=== PATIENT | male | born 1990 ===

== ENCOUNTER 2024-12-20 19:23 | Emergency (ER) | payer SELFPAY ==
--- NOTE | ~2024-12-20 | CT_ITS ---
EXAMINATION: CT chest abdomen pelvis w con DATE: 12/20/2024 21:05 INDICATION: ams, febrile . TECHNIQUE: Computed tomography (CT) of the chest, abdomen, and pelvis was performed with intravenous contrast. Automated exposure control and iterative reconstruction technique were employed. The dose-l ength product was 2196.26 mGy-cm. COMPARISON: None FINDINGS: CHEST: No thoracic aortic injury. No mediastinal hematoma. Calcified lymph nodes. No pericardial effusion. No acute lung injury. No pleural effusion or pneumothorax. ABDOMEN/PELVIS: No solid organ injury. Hepatic steatosis. No evidence of bowel or mesenteric injury. No free fluid or free air. No retroperitoneal hematoma. Pelvic contents are atraumatic. The rectum is distended to 6.0 cm by formed stool, without surroundin g wall thickening or inflammatory change. MUSCULOSKELETAL: Slightly impacted fracture of the right humeral head. Mild symmetric gynecomastia. Small uncomplicate d fat-containing umbilical and left inguinal hernias. Mild superior endplate deformities at T8-T11. Moderate burst fracture at T12 with 4 mm retropulsion. IMPRESSION: Slightly impacted right humeral head fracture. Presumed acute mild compression fractures at T8 through T11. Moderate burst fracture at T12 with 4 mm retropulsion. Hepatic steatosis. Possible fecal impaction. Reviewed, dictated and finalized at location K. OMER MARKETING INTERN IMPRESSION: Slightly impacted right humeral head fracture. Presumed acute mild compression fractures at T8 through T11. Moderate burst fra cture at T12 with 4 mm retropulsion. Hepatic steatosis. Possible fecal impaction.
--- NOTE | ~2024-12-20 | XR_ITS ---
EXAMINATION: XR chest 1V portable Exam Date/Time: 12/20/2024 20:10 HAIR DRYER HISTORY: ams, febrile Comparison: None. RESULT: Lines, tubes, and devices: None. Lungs and pleura: Low volumes with crowding. Mild diffuse reticular opacities. No focal consolidatio n, pleural effusion, or pneumothorax. Cardiomediastinal silhouette: Unremarkable. Other: No acute osseous or upper abdominal finding. IMPRESSION: Mild diffuse interstitial opacities may represent artifact from crowding or mild edema/respiratory br onchiolitis. Reviewed, dictated and finalized at location K. DRYER IMPRESSION: Mild diffuse interstitial opacities may represent artifact from crowding or mil d edema/respiratory bronchiolitis.
--- NOTE | ~2024-12-20 | CT_ITS ---
EXAMINATION: CT brain wo con DATE: 12/20/2024 20:46 INDICATION: ams, febrile, poss hx TBI . TECHNIQUE: Computed tomography (CT) of the head was performed without intravenous contrast. The mA wa s adjusted according to patient size. Iterative reconstruction technique was employed. The dose-lengt h product was 756.67 mGy-cm. COMPARISON: None. FINDINGS: 6.4 x 4.0 x 3.9 cm right temporal intracranial hemorrhage with surrounding edema. 5 mm [id number] midline shift. No acute extra-axial fluid collection. No hydrocephalus or mass. No acute ischemic infarct. Unremarkable dural venous sinus attenuation. No acute osseous abnormality. Small retention cyst/polyp in a right anterior ethmoid cell, the remaining aerated spaces are clear. IMPRESSION: 6.4 cm right temporal intracranial hemorrhage with 5 mm subfalcine herniation. Results reported telephonically to Dr. Contreras by Dr. Kelley at 8:53 PM on 12/20/2024. Reviewed, dictated and finalized at location K. OPHANE CASTING MACHINE REPAIRER IMPRESSION: 6.4 cm right temporal intracranial hemorrhage with 5 mm subfalcine herniation. Results reported telephonically to Dr. Contreras by Dr. Kelley at 8:53 PM on 2024.
--- NOTE | ~2024-12-20 | XR_ITS ---
EXAM: XR knee RT 3V DATE: 12/20/2024 21:33 HISTORY: abrasion, possible pain? . COMPARISON: None available. FINDINGS: Normal mineralization. No fracture or dislocation. No lytic or blastic lesion. Joint space s are maintained. No erosion or periosteal change. Soft tissues within normal limits. IMPRESSION: No acute osseous finding in the right knee. Reviewed, dictated and finalized at location K. ER
--- NOTE | ~2024-12-20 | CT_ITS ---
EXAMINATION: CT cervical spine wo con DATE: 12/20/2024 21:02 INDICATION: ams, TECHNIQUE: Computed tomography (CT) of the cervical spine was performed without intravenous contrast. Automated exposure control and iterative reconstruction technique were employed. The dose-length pro duct was 767.40 mGy-cm. COMPARISON: None. FINDINGS: Vertebral Body Alignment: Intact. Craniocervical and atlantoaxial alignment: Mild degenerative change at the HEBER. Alignment intact. Osseous structures/fracture: No evidence of a lytic or blastic process in the visualized spine. No e vidence of acute fracture. Mild sphenoid mucosal thickening. Cervical soft tissues: The paraspinal soft tissues planes are maintained. Degenerative changes: No significant degenerative changes. IMPRESSION: No acute fracture or traumatic malalignment in the cervical spine. Reviewed, dictated and finalized at location K. LER LEAD TEACHER
[2024-12-20 19:24] VITALS: BP 152/110; PULSE 78; RESP 18; TEMP 38.7; O2SAT 95
--- NOTE | 2024-12-20 19:30 | ECG_ITS ---
Test Date: 2024-12-20 19:58:26 Measurements Intervals [place] Rate: 85 P: 56 WV: 151 QRS: 7 QRSD: 96 T: 31 QT: 391 QTc: 466 Interpretive Statements SINUS RHYTHM No previous ECG available for comparison Electronically Signed On 12-21-2024 14:19:04 HAMPER MAKER MACHINE by Adelaide Oliva M.D.
--- NOTE | 2024-12-20 19:33 | ED.AMS ---
HPI - Altered Mental Status General Chief Complaint: Altered Mental Status Stated Complaint: Altered from homeless encampment Source: EMS and other (Rubi from [facility]) Mode of arrival: EMS Limitations: altered mental status and other History of Present Illness HPI narrative: Patient presents via EMS from a homeless encampment. Personal from a local [facility] is able to provide collateral information is they are familiar with this patient. He has been homeless for approximately 2 years. Not believed to use drugs. Possible history TBI although unsure. Reports a history of R external strabismus which is baseline. Sleeping on porch. EMS note that he was alert oriented x2 or 3 which is also reported as his baseline however he reports that he is possibly autistic and generally communicative although tonight he was speaking nonsensically. Up he did seem to indicate that he was in pain when being moved to the stretcher however can not say where/how. Patient repeatedly asking for a glass of water, had asked the same to staff. Related Data Allergies Allergy/AdvReac Type Severity Reaction Status Date / Time No Known Allergies Allergy Verified 12/20/24 20:27 [facility] Past Medical History Medical History Strabismus Social History Social History (Updated 12/20/24 @ 19:42 by Vernell Contreras MD) Social History: Previously from [place]; parents from [place] Living arrangements: homeless Additional living arrangements comments: since approximately 2022 Exam Narrative: GENERAL: Well-appearing, well-nourished, and in no acute distress. HEAD: Normocephalic, atraumatic. EYES: Non injected, non icteric. PERRL, approximately 4mm bilaterally. ENT: Nares clear, no rhinorrhea or epistaxis. NECK: C collar in place CHEST: Speaking in sentences. No respiratory distress. Lungs clear auscultation bilaterally. HEART: Regular rate and rhythm. ABDOMEN: Soft, nondistended. Nontender to palpation throughout. No rigidity or guarding. Not peritoneal. : Normal male external genitalia EXTREMITIES: No lower extremity edema. Small very superficial abrasion on right knee. Extremities palpated x4 w/o obvious bony deformity. SKIN: Core/torso warm but extremities are cool, symmetrically. No ecchymosis. NEURO: No focal deficits. Alert but unable to answer questions including not his name or the year or circumstances. Repeatedly asking for a cup of water. No ankle clonus bilaterally. PSYCH: COurteous. Mood and affect congruent. Course Vital Signs Vital signs: Vital Signs Temperature 101.6 F H 12/20/24 19:24 Pulse Rate 78 12/20/24 19:24 Respiratory Rate 18 12/20/24 19:24 Blood Pressure 152/110 H 12/20/24 19:24 Pulse Oximetry 95 12/20/24 19:24 Oxygen Delivery Room Air 12/20/24 19:24 Temperature 101.6 F H 12/20/24 19:24 Pulse Rate 73 12/20/24 22:18 Respiratory Rate 18 12/20/24 22:18 Blood Pressure 147/89 H 12/20/24 22:18 Pulse Oximetry 100 12/20/24 22:18 Oxygen Delivery Room Air 12/20/24 19:37 MDM - Altered Mental Status MDM Narrative Medical decision making narrative: Patient presents from a homeless penitentiary/encampment, known by [facility] personnel. Reportedly alert and oriented x2-3 at baseline but typically able to speak whereas initially speaking nonsensically to EMS and unable to provide history. Possible history of autism and TBI, though not confirmed. Rectal temperature 101.6? F and patient mildly hypertensive but otherwise VS within normal limits. Social determinants of health affecting/contributing: Homelessness. Patient has a leukocytosis. Given the concern for infection/sepsis, a second liter of NS fluids ordered. Hyperglycemia without anion gap or acidosis. Hyperbilirubinemia, indirect. Ddx indirect hyperbilirubinemia Over production of bilirubin (hemolytic anemia), reduced uptake (cirrhosis or congestive hepatopathy), impaired conjugation, biliary obstruction, hereditary disease (Gilbert syndrome, Tim-George syndrome, Crigler-Nelli syndrome), medication side effect (allopurinol, anabolic steroids, antibiotics, antimalarials, etc.) Patient had been noted to yell out as if in pain when rolled by EMS although does not do so initially in stretcher but then does when staff attempts to roll for insertion of rectal Tylenol for fever. States it's bad but can not localize. Will start with this Tylenol and reassess; CT scan chest/abd/pelvis already ordered but will add Knee Xray. Urinalysis without signs of infection although there is glucosuria and proteinuria. Patient has a right temporal intracranial hemorrhage. GCS 11 (E3/V4/M4). C collar removed due to no fracture. Patient continues to be protecting his airway. He is informed about his diagnosis although unable to meaningingfully engage in conversation; support person with patient is informed. Hemoglobin A1c is 9.0%, thus patient is a diabetic although this does not appear to have been previously known. While awaiting discussion with emergency department attending at [facility], patient's CT imaging for chest abdomen pelvis does results showing a right humeral head fracture. Also T8-T11 compression fractures. This is presumably now a trauma. Patient discussed with ED attending Dr. Allie Kumar who accepts patient is a level 2 trauma emergency department to emergency department transfer at 9:35 p.m. will arrange EMS transportation and notify if any change in condition. Control BP <180mmHg. Will give pain medication. Sling ordered for humerus fracture. Critical Care: 1 or more vital organ systems impaired with a high probability of imminent or life-threatening deterioration in the patient's condition requiring frequent personal assessment and manipulation of the patient's condition. This included time spent evaluating the patient, speaking with EMS pre-hospital personnel and family, reviewing/interpreting laboratory/imaging studies, discussing the case with consultants or admitting teams, retrieving data and reviewing charts, monitoring for decompensation, documenting the visit, and performing bundled procedures exclusive of separately billed procedures. Differential Diagnosis Differential diagnosis: Likely alcoholic intoxication, altered mental status, delirium, hypoglycemia, hyponatremia, subarachnoid hemorrhage, sepsis and other (viral syndrome, infection due to pneumonia/UTI/other. Encephalopathy/meningitis. Seizure. Hypothermia. ) Lab Data Attestation: I reviewed the patient's lab results. 12/20/24 19:50 12/20/24 19:50 Labs: Lab Results 12/20/24 12/20/24 12/20/24 Range/Units 19:50 20:00 22:32 WBC 13.4 H (4.5-10.0) K/mm3 RBC 5.42 (4.6-6.20) M/mm3 Hgb 16.3 (14.0-18.0) g/dL Hct 48.6 (42.0-52.0) % MCV 89.7 (80-100) fl MCH 30.1 (26-34) pg MCHC 33.5 (32-36) g/dl RDW 12.9 (11.5-14.5) % Plt Count 164 (150-375) k/mm3 MPV 10.1 (7.4-10.4) fl Immature Gran % (Auto) 0.7 H (0-0.5) % Neut % (Auto) 86.2 H (45.5-73.1) % Lymph % (Auto) 6.9 L (18.3-44.2) % [place] % (Auto) 6.1 (2.6-8.5) % Eos % (Auto) 0.0 (0-4.4) % Baso % (Auto) 0.1 L (0.2-1.2) % Lymph # (Auto) 0.93 (0.9-3.2) K/mm3 [place] # (Auto) 0.8 H (0.1-0.6) K/mm3 Eos # (Auto) 0.0 (0-0.3) K/mm3 Baso # (Auto) 0.0 (0.0-0.1) K/mm3 Abs Immat Gran (auto) 0.10 H (0.00-0.031) K/mm3 Absolute Neuts (auto) 11.6 H (1.3-6.7) K/mm3 Absolute Nucleated RBC 0.000 (0.0-0.012) K/mm3 Nucleated RBC % 0.0 (0.0-0.2) % PT 15.7 H (11.1-14.7) Seconds INR 1.2 APTT 27.2 (22.3-36.8) Seconds Sodium 137 (137-145) mmol/L Potassium 4.0 (3.4-5.0) mmol/L Chloride 100 (98-107) mmol/L Carbon Dioxide 25 (22-30) mmol/L Anion Gap 12 (4-12) mmol/L BUN 21 H (9-20) mg/dL Creatinine 0.84 (0.7-1.3) mg/dL Estim Creat Clear Calc Not Reportable Estimated GFR > 60 (59 - ) Glucose 203 H (65-110) mg/dL POC Capillary Glucose 207 H (65-105) mg/dl Hemoglobin A1c 9.0 H (<5.7) % Lactic Acid 1.8 (0.7-2.0) mmol/L Calcium 9.3 (8.4-10.2) mg/dL Total Bilirubin 3.0 H (0.2-1.3) mg/dL Direct Bilirubin 0.0 (0-0.3) mg/dL Indirect Bilirubin 2.2 H (0-1.1) mg/dL AST 37 (17-59) U/L ALT 57 H (6-50) U/L Alkaline Phosphatase 96 (38-126) U/L Ammonia < 9 L (9-30) umol/L Total Creatine Kinase 177 H (55-170) U/L Troponin I < 0.012 (0.000-0.034) ng/mL Total Protein 9.0 H (6.3-8.2) g/dL Albumin 4.2 (3.5-5.1) g/dL TSH 1.210 (0.465-4.680) uIU/mL Urine Color Dark yellow (Yellow) Urine Appearance Clear (Clear) Urine pH 5.5 (5.0-9.0) Ur Specific [place] 1.030 (1.001-1.035) Urine Protein 3+ H (Negative) mg/dL Urine Glucose (UA) Trace H (Negative) mg/dL Urine Ketones 2+ H (Negative) mg/dL Ur Blood (Man) 2+ H (Negative) Urine Nitrate Negative (Negative) Urine Bilirubin 1+ H (Negative) Urine Urobilinogen 4.0 H (<2.0) mg/dL Add Ur Microanalysis Reviewed Leukocyte Esterase Rfl Negative (Negative) MARCO ANTONIO/UL Urine RBC 6-10 H (0-2) /hpf Urine WBC 0-5 (0-3) /hpf Ur Squamous Epith Cells None seen (Few) /hpf Urine Bacteria None seen /hpf Urine Casts 0-2 Nasal MRSA (PCR) Not detected (NOT DETECTE) Salicylates < 1.0 L (2-20) mg/dL Acetaminophen < 10 L (10-30) ug/mL Ethyl Alcohol < 10 (<10) mg/dL Influenza A (RT-PCR) Negative (Negative) Influenza B (RT-PCR) Negative (Negative) RSV (RT-PCR) Negative (Negative) SARS-CoV-2 RNA (RT-PCR) Negative (Negative) Imaging Data Attestation: I personally reviewed and interpreted this imaging study as follows: My impression: Sizeable right sided intracranial hemorrhage w/o obvious skull fracture Radiologist's impression: Impressions Chest X-Ray 12/20/24 20:28 IMPRESSION: Mild diffuse interstitial opacities may represent artifact from crowding or mild edema/respiratory bronchiolitis. Head CT 12/20/24 20:50 IMPRESSION: 6.4 cm right temporal intracranial hemorrhage with 5 mm subfalcine herniation. Results reported telephonically to Dr. Contreras by Dr. Kelley at 8:53 PM on 12/20/2024. Cervical Spine CT 12/20/24 21:03 IMPRESSION: No acute fracture or traumatic malalignment in the cervical spine. Chest/Abdomen/Pelvis CT 12/20/24 21:13 IMPRESSION: Slightly impacted right humeral head fracture. Presumed acute mild compression fractures at T8 through T11. Moderate burst fracture at T12 with 4 mm retropulsion. Hepatic steatosis. Possible fecal impaction. Knee X-Ray 12/20/24 21:50 IMPRESSION: No acute osseous finding in the right knee. ECG Data EKG #1: Attestation: I personally reviewed and interpreted this ECG as follows: ECG completion date: 12/20/24 ECG completion time: 19:58 Prior ECG tracings: not available for review (No prior for comparison) Interpretation: Normal sinus rhythm at a rate of 85 beats per minute. VT interval 151. QRS 96. QT/QTC 391/433. Good R-wave progression across the precordial leads. T-wave inversion in lead 3 but upright in normal in contiguous inferior leads 2 and AVF. No other T-wave inversions. Critical Care Time Critical Care Time Critical Care Time: Yes Total Critical Care Time: 35 Discharge Plan Discharge Clinical Impression: Intracranial hemorrhage, Altered mental status, Febrile, Leukocytosis, Glucosuria, Protein in urine, Indirect hyperbilirubinemia, Diabetes mellitus with hyperglycemia, Fracture of humeral head, Fracture of vertebra, closed, Burst fracture of T12 vertebra, Hepatic steatosis Patient Disposition: Acute Care Hospital Condition: Serious Patient Language: Uzbek
[2024-12-20 19:37] VITALS: O2SAT 98
[2024-12-20 19:40] VITALS: PULSE 84
[2024-12-20 19:59] LABS: Basophils Percent Auto 0.1 % (0.2-1.2); Hematocrit 48.6 % (42.0-52.0); Hemoglobin 16.3 g/dL (14.0-18.0); Immature Granulocyte Percent A 0.7 % (0-0.5); Lymphocytes Absolute Auto 0.93 K/mm3 (0.9-3.2); Lymphocytes Percent Auto 6.9 % (18.3-44.2); Mean Corpuscular HGB Conc 33.5 g/dl (32-36); Mean Corpuscular Hemoglobin 30.1 pg (26-34); Mean Corpuscular Volume 89.7 fl (80-100); Mean Platelet Volume 10.1 fl (7.4-10.4); Monocytes Absolute Auto 0.8 K/mm3 (0.1-0.6); Monocytes Percent Auto 6.1 % (2.6-8.5); Neutrophils Absolute Auto 11.6 K/mm3 (1.3-6.7); Neutrophils Percent Auto 86.2 % (45.5-73.1); Platelet Count Result 164 k/mm3 (150-375); Red Blood Count 5.42 M/mm3 (4.6-6.20); Red Cell Distribution Width 12.9 % (11.5-14.5); White Blood Count 13.4 K/mm3 (4.5-10.0)
[2024-12-20 20:03] LABS: Glucose Point of Care 207 mg/dl (65-105)
[2024-12-20 20:08] LABS: Lactic Acid Reflex 1.8 mmol/L (0.7-2.0)
[2024-12-20 20:09] LABS: Alanine Aminotransferase 57 U/L (6-50); Albumin Level 4.2 g/dL (3.5-5.1); Alkaline Phosphatase 96 U/L (38-126); Anion Gap 12 mmol/L (4-12); Aspartate Amino Transferase 37 U/L (17-59); Blood Urea Nitrogen 21 mg/dL (9-20); Calcium 9.3 mg/dL (8.4-10.2); Carbon Dioxide 25 mmol/L (22-30); Chloride 100 mmol/L (98-107); Creatine Kinase 177 U/L (55-170); Estimated Glomerular Filt Rate > 60; Glucose 203 mg/dL (65-110); Sodium 137 mmol/L (137-145)
[2024-12-20 20:10] LABS: INR 1.2; Prothrombin Time 15.7 Seconds (11.1-14.7)
[2024-12-20 20:11] LABS: Partial Thromboplastin Time 27.2 Seconds (22.3-36.8)
[2024-12-20 20:14] LABS: Acetaminophen < 10 ug/mL (10-30); Ammonia < 9 umol/L (9-30); Ethanol < 10 mg/dL (<10); Salicylate < 1.0 mg/dL (2-20)
[2024-12-20 20:21] LABS: Troponin I < 0.012 ng/mL (0.000-0.034)
[2024-12-20] MEDS: Please add drug allergy info to patient profile. 1 EACH XX (20:26)
[2024-12-20] MEDS: SODIUM CHLORIDE 0.9% IV 1,000 ML 999 ML IV CONT ×2 (20:26→20:31)
[2024-12-20 20:28] LABS: Add Urine Microscopic? YES; Appearance Urine Clear (Clear); Bacteria Urine None Seen /hpf; Bilirubin Urine 1+ (Negative); Blood Urine 2+ (Negative); Color Urine Dark Yellow (Yellow); Glucose Urine UA Trace mg/dL (Negative); Ketones Urine 2+ mg/dL (Negative); Leukocyte Esterase Ur Negative LEU/UL (Negative); Need Manual Microscopic Reviewed; Nitrate Urine Negative (Negative); Non Pathogenic Casts 0-2; Protein Urine 3+ mg/dL (Negative); Squamous Epithelial Cell Urine None Seen /hpf (Few); WBC Urine 0-5 /hpf (0-3); pH Urine 5.5 (5.0-9.0)
--- NOTE | 2024-12-20 20:28 | PC.NURSE ---
This RN and KAVITA Viveros attempted to roll over pt for administration of tylenol suppository. When pt was rolled pt began screaming in pain but is not able to localize the pain. Pt is kicking and screaming and us RNs were unable to successfully administer tylenol. MD Contreras notified.
[2024-12-20 20:35] LABS: Influenza A QL RT-PCR Negative (Negative); Influenza B QL RT-PCR Negative (Negative); RSV RNA, RT-PCR Negative (Negative); SARS-CoV-2 RNA PCR Negative (Negative)
[2024-12-20 21:13] LABS: Bilirubin Indirect 2.2 mg/dL (0-1.1)
[2024-12-20 21:47] VITALS: BP 118/82; PULSE 92; RESP 26; O2SAT 98
[2024-12-20] MEDS: HYDROmorphone HCL INJ (*CRX) 1 MG/ML SYR 0.5 MG IV PUSH (21:54)
[2024-12-20] MEDS: CEFEPIME 1 GM/NS 50 ML 1 GM/50 ML BAG IVPB (21:54)
[2024-12-20] MEDS: WEIGHT NEEDED FOR VANCO DOSING 1 EACH XX (21:54)
[2024-12-20 22:18] VITALS: BP 147/89; PULSE 73; RESP 18; O2SAT 100
[2024-12-20] MEDS: VANCOMYCIN 1,250 MG/NS 250 ML 1,250 MG/250 ML BAG 166.67 MG IVPB (22:23)
[2024-12-20 23:46] LABS: MRSA (PCR) NOT DETECTED (NOT DETECTE)
== END 2024-12-20 22:45 | disposition short-term general hospital (02) ==
PROVIDERS: Emergency Provider Student in an Organized Health Care Education/Training Program
DX: I62.9 Nontraumatic intracranial hemorrhage, unspecified (principal); S42.291A Other displaced fracture of upper end of right humerus, initial encounter for closed fracture; S22.081A Stable burst fracture of T11-T12 vertebra, initial encounter for closed fracture; S22.060A Wedge compression fracture of T7-T8 vertebra, initial encounter for closed fracture; S22.080A Wedge compression fracture of T11-T12 vertebra, initial encounter for closed fracture; S22.070A Wedge compression fracture of T9-T10 vertebra, initial encounter for closed fracture; E11.65 Type 2 diabetes mellitus with hyperglycemia; D72.829 Elevated white blood cell count, unspecified; E80.6 Other disorders of bilirubin metabolism; R80.9 Proteinuria, unspecified; K76.0 Fatty (change of) liver, not elsewhere classified; Z20.822 Contact with and (suspected) exposure to COVID-19; R91.8 Other nonspecific abnormal finding of lung field; X58.XXXA Exposure to other specified factors, initial encounter
CPT/HCPCS: 36415; 70450; 71045; 71260; 72125; 73562; 74177; 80053; 80143; 80179; 81001; 82077; 82140; 82248; 82550; 82948; 83036; 83605; 84443; 84484; 85025; 85610; 85730; 87040; 87637; 87641; 93005; 96361; 96365; 96367; 96375; 99285; A4565; J0692; J1171; J3370; J7030; Q9967